=== PATIENT | male | born 1950 | race Caucasian/White ===

== ENCOUNTER → 2018-04-22 | Outpatient (CLI) | payer BC, OTHER, MEDICARE ==
--- NOTE | 2018-04-22 08:51 | US ---
EXAMINATION TYPE: US kidneys/renal and bladder DATE OF EXAM: 04/22/2018 COMPARISON: NONE CLINICAL HISTORY: R82.8 Abnormal urine cytology / Frequent urination. EXAM MEASUREMENTS: Right Kidney: 11.5 x 5.5 x 4.7 cm Left Kidney: 11.5 x 5.7 x 5.4 cm Post Void Residual Volume: 96.2 mL Right Kidney: No hydronephrosis or masses seen Left Kidney: No hydronephrosis or masses seen Bladder: wnl. Prostate appears prominent Bilateral Jets seen: Yes Normal Post Void Residual: No There is no evidence for hydronephrosis at this point in time. No nephrolithiasis is seen. No luis s are identified. The urinary bladder is anechoic. Bilateral ureteral jets are seen. IMPRESSION: Prominence of the prostate gland. Otherwise unremarkable study.
== END | disposition home or self-care (01) ==
LOC: RADUSWWP 08:08
PROVIDERS: ATTEND Urology
DX: N42.89 Other specified disorders of prostate (principal)
CPT/HCPCS: 76770

== ENCOUNTER → 2019-02-18 | Outpatient (CLI) | payer BC, MEDICARE ==
[2019-02-18 14:58] LABS: Basophils % (A) 1 %; Eosinophils # (A) 0.2 k/uL (0-0.7); Eosinophils % (A) 3 %; HCT 43.4 % (39.0-53.0); HGB 14.6 gm/dL (13.0-17.5); Lymphocytes # (A) 1.7 k/uL (1.0-4.8); Lymphocytes % (A) 29 %; MCH 28.4 pg (25.0-35.0); MCHC 33.7 g/dL (31.0-37.0); MCV 84.2 fL (80.0-100.0); Mean Platelet Volume 6.9; Monocytes # (A) 0.4 k/uL (0-1.0); Monocytes % (A) 6 %; Neutrophils # (A) 3.7 k/uL (1.3-7.7); Neutrophils % (A) 61 %; Platelet Count 259 k/uL (150-450); RBC 5.16 m/uL (4.30-5.90); RDW 14.3 % (11.5-15.5)
[2019-02-18 23:43] LABS: Albumin 4.3 g/dL (3.80-4.90); Albumin/Globulin Ratio 2.39 (1.60-3.17); Anion Gap 9.1 mmol/L (4.00-12.00); Calcium 9.3 mg/dL (8.7-10.3); Carbon Dioxide 26.9 mmol/L (21.6-31.8); Globulin 1.8 g/dL (1.6-3.3); Total Bilirubin 0.9 mg/dL (0.2-1.2); Total Protein 6.1 g/dL (6.2-8.2)
[2019-02-18 23:50] LABS: T4, Free (Free Thyroxine) 1.1 ng/dL (0.80-1.80)
== END ==
LOC: LABWHC1 14:19
PROVIDERS: ATTEND Psychiatry & Neurology Neurology
DX: T42.6X5A Adverse effect of other antiepileptic and sedative-hypnotic drugs, initial encounter (principal); R56.9 Unspecified convulsions
CPT/HCPCS: 36415; 80053; 84439; 84443; 85025

== ENCOUNTER 2020-11-02 10:38 | Day surgery (SDC) | payer BC, MEDICARE ==
[2020-10-31 16:14] VITALS: BMI 25.8
[~2020-11-02 10:38] MED LIST: LACTATED RINGERS 1,000 ML IV SCH; LIDOCAINE 1% (10MG/ML) FOR IV START INTRADERMA PRN
[2020-11-02 11:13] VITALS: TEMP 97
[2020-11-02] MEDS ORDERED: LIDOCAINE 1% INJ 10MG/ML (20 ML MDV) ONE (11:57)
[2020-11-02] MEDS ORDERED: PROPOFOL 10 MG/ML 20 ML VIAL IV ONE (11:57)
--- NOTE | 2020-11-02 12:17 | P.PCN ---
Date of Procedure: 11/02/20 Procedure(s) Performed: BRIEF HISTORY: Patient is a 70-year-old pleasant white male scheduled for an elective colonoscopy as a part of evaluation of change in bowel habits. Last colonoscopy was 10 years ago. PROCEDURE PERFORMED: Colonoscopy with snare polypectomy. PREOPERATIVE DIAGNOSIS: Change in bowel habits. IV sedation per Anesthesia. PROCEDURE: After informed consent was obtained, the patient, was brought into the endoscopy unit. IV sedation was administered by Anesthesia under continuous monitoring. Digital rectal examination was normal. Initially the Olympus CF-160 flexible video colonoscope was then inserted in the rectum, gradually advanced into the cecum without any difficulty. Careful examination was performed as the scope was gradually being withdrawn. Ileocecal valve and the appendiceal orifice were visualized and appeared normal. Prep was excellent. The cecum there was a 1.5 cm broad-based polyp removed by snare polypectomy. Mucosa of the cecum, ascending colon, transverse colon, descending colon, sigmoid colon, and rectum appeared normal. Moderate left-sided diverticulosis seen. Retroflexion was performed in the rectum and no lesions were seen. The patient tolerated the procedure well. IMPRESSION: 1.5 cm cecal polyp status post snare polypectomy Moderate sigmoid diverticulosis. RECOMMENDATIONS: Findings of this examination were discussed with the patient as well as his family. He was advised to follow with the biopsy results. If the biopsy shows an adenoma he can have a repeat colonoscopy in 3 years.
[2020-11-02 12:48] VITALS: BP 156/93; PULSE 60; RESP 14
== END 2020-11-02 12:58 | disposition home or self-care (01) ==
LOC: ORWHC2ENDO 10:38
PROVIDERS: ATTEND Internal Medicine Gastroenterology
DX: D12.0 Benign neoplasm of cecum (principal); K57.30 Diverticulosis of large intestine without perforation or abscess without bleeding; Z79.899 Other long term (current) drug therapy
CPT/HCPCS: 88305; 45385; J2001; J2704

== ENCOUNTER 2022-02-16 15:21 | Emergency (ER) | payer BC, MEDICARE ==
[2022-02-16 15:47] VITALS: RESP 18
--- NOTE | 2022-02-16 17:31 | ED ---
General Adult HPI - General Chief complaint: Recheck/Abnormal Lab/Rx Stated complaint: wants covid test Time Seen by Provider: 02/16/22 16:29 Source: patient, RN notes reviewed Mode of arrival: ambulatory Limitations: no limitations - History of Present Illness Initial comments: 71-year-old male presents to the emergency department for evaluation after having a positive Covid test at home. Patient states he started with a cough on and was just not feeling like himself therefore he took Covid test. States he has continued to feel poorly, specifically fatigue. Patient reports history of short-term memory loss and requested I speak with his who verifies these symptoms and this timeline. Patient denies fever, chills, shortness of breath, abdominal pain, nausea, vomiting, diarrhea, dysuria, or hematuria. - Related Data Home Medications Medication Instructions Recorded Confirmed lamoTRIgine [lamoTRIgine ER] 100 mg PO BID 07/31/16 11/02/20 Multivit-Min/FA/Lycopen/Lutein 1 each PO DAILY 10/31/20 11/02/20 [Centrum Silver Tablet] Vitamin B-12 (Unknown Dose) 1 tab PO DAILY 10/31/20 11/02/20 Allergies Allergy/AdvReac Type Severity Reaction Status Date / Time No Known Allergies Allergy Verified 02/16/22 15:47 Review of Systems ROS Statement: Those systems with pertinent positive or pertinent negative responses have been documented in the HPI. ROS Other: All systems not noted in ROS Statement are negative. Past Medical History Past Medical History: Memory Impairment, Seizure Disorder Additional Past Medical History / Comment(s): Has shunt, hx hematomas, hydrocephalic; last seizure 1993; short term memory impaired. Recent wgt loss, some diarrhea. History of Any Multi-Drug Resistant Organisms: None Reported Past Surgical History: Ventriculoperitoneal Shunt Additional Past Surgical History / Comment(s): MULTIPLE BRAIN SURGERIES - SHUNT. Colonoscopy Past Anesthesia/Blood Transfusion Reactions: No Reported Reaction Past Psychological History: No Psychological Hx Reported Smoking Status: Never smoker Past Alcohol Use History: None Reported Past Drug Use History: None Reported - Past Family History Father Family Medical History: Cancer Additional Family Medical History / Comment(s): SKIN CANCER General Exam Limitations: no limitations (Well-developed, well-nourished male in no acute distress. Initial temperature 98.2, pulse 84, respirations 18, blood pressure 168/83, pulse ox 99% on room air.) General appearance: alert, in no apparent distress ENT exam: Present: normal exam, normal oropharynx, mucous membranes moist Respiratory exam: Present: normal lung sounds bilaterally. Absent: respiratory distress, wheezes, rales, rhonchi, stridor, chest wall tenderness Cardiovascular Exam: Present: regular rate, normal rhythm, normal heart sounds. Absent: systolic murmur, diastolic murmur, rubs, gallop, clicks GI/Abdominal exam: Present: soft, normal bowel sounds. Absent: distended, tenderness, guarding, rebound, rigid Neurological exam: Present: alert, oriented X3, CN II-XII intact, other (history of short-term memory loss, answers questions appropriately) Psychiatric exam: Present: normal affect, normal mood Skin exam: Present: warm, dry, intact, normal color Course Vital Signs 02/16/22 02/16/22 02/16/22 15:42 17:37 17:47 Temperature 98.2 F 98.4 F Pulse Rate 84 80 Respiratory 18 18 18 Rate Blood Pressure 168/83 154/80 O2 Sat by Pulse 99 99 Oximetry 02/16/22 18:56 Temperature Pulse Rate 86 Respiratory 18 Rate Blood Pressure 154/90 O2 Sat by Pulse 98 Oximetry - Reevaluation(s) Reevaluation #1: 02/16/22 17:00 Patient was assessed in [facility]. Discussed symptoms, onset, and timeline. Talked with patient about the monoclonal antibody infusion; he is agreeable. Also spoke with patient's spouse at that time and she corroborates this. 02/16/22 18:35 Patient tolerated monoclonal antibody infusion well. No adverse reaction. Provid ed with a meal and will be discharged one hour after injection. 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 Upon exam, patient is well-appearing and in no acute distress. He is able to speak in full sentences and is not experiencing any difficulty breathing. Patient reports symptoms began on with a cough and have progressed to fatigue. Physical exam findings are unremarkable. He is afebrile with a room air sat 98% or greater. Discussed mAB infusion with patient as well as his spouse via telephone. He qualifies based on positive test verified today, symptom onset within the past 7 days, and age greater than 65 years. He tolerated the infusion without adverse reaction. He will be discharged home with strict return parameters. Reviewed isolation guideline. Instructed to follow up with PCP for recheck via telephone or videovisit on Friday. Patient verbalizes understanding and agrees with this plan. Attending: Frantz. - Lab Data Lab Results 02/16/22 Range/Units 15:48 Coronavirus (PCR) Detected A (Not Detectd) Disposition Clinical Impression: COVID-19 Disposition: HOME SELF-CARE Condition: Stable Instructions (If sedation given, give patient instructions): Coronavirus Disease 2019 (COVID-19) Additional Instructions: Alternate Tylenol and Motrin if needed for fever or body aches. Increase hydration and consider electrolyte replacement solution such as Gatorade or Powerade. Follow-up with your PCP via telephone or video visit for a recheck on Friday. Call and let him know that you were seen in the ED and given the monoclonal antibody infusion. You were provided with a work note. You may return to work on February 20 if you remain fever-free. Please wear a mask while at work upon your return. Return to the emergency department with any new, worsening, or concerning symptoms. Is patient prescribed a controlled substance at d/c from ED?: No Referrals: Rito Dutton MD [Primary Care Provider] - 1-2 days Time of Disposition: 19:00
[2022-02-16] MEDS ORDERED: BEBTELOVIMAB (EUA) 175 MG/2 ML VIAL IV ONE (18:00)
[2022-02-16 18:16] VITALS: TEMP 98.4
[2022-02-16 19:06] VITALS: BP 154/90; PULSE 86
== END 2022-02-16 18:56 | disposition home or self-care (01) ==
LOC: EC 15:21
DX: U07.1 COVID-19 (principal); G40.909 Epilepsy, unspecified, not intractable, without status epilepticus; Z79.899 Other long term (current) drug therapy
CPT/HCPCS: 87635; 99283; Q0222

== ENCOUNTER → 2024-03-09 | Outpatient (CLI) | payer BC, MEDICARE ==
--- NOTE | 2024-03-09 13:32 | CT ---
EXAMINATION TYPE: CT brain wo con CT DLP: 1219 mGycm, Automated exposure control for dose reduction was used. DATE OF EXAM: 03/09/2024 1:17 PM COMPARISON: . CLINICAL INDICATION:Male, 73 years old with history of G91.0 hydrocephalus, failed shunt, f/u TECHNIQUE: Brain: Axial CT images of the brain were obtained with coronal and sagittal reformats created and rev iewed. Contrast used: None. Oral contrast used: None. FINDINGS: Brain: Extra-axial spaces: No abnormal extra-axial fluid collections. Ventricular system: Marked dilatation. A shunt tube approaches from the right parietal bone. It trave rses the posterior horn of the right ventricle and has its tip near the midline at the level of the a nterior horns. Cerebral parenchyma: No acute intraparenchymal hemorrhage or mass effect. The devine-white junction is well differentiated. Cerebellum: Unremarkable. Mass effect: No evidence of midline shift. Intracranial vasculature: unremarkable Soft tissues: Normal. Calvarium/osseous structures: No depressed skull fracture. Paranasal sinuses and mastoid air cells: Mild scattered paranasal sinus disease. Visualized orbits: Orbital contents are intact. IMPRESSION: Hydrocephalus with shunt tube in place.
== END | disposition home or self-care (01) ==
LOC: RADCTMAIN 12:23
PROVIDERS: ATTEND Psychiatry & Neurology Neurology
DX: G91.9 Hydrocephalus, unspecified (principal); G91.0 Communicating hydrocephalus
CPT/HCPCS: 70450

== ENCOUNTER 2025-02-17 18:48 | Emergency (ER) | payer BC, MEDICARE ==
--- NOTE | 2025-02-17 19:58 | ED ---
General Adult HPI - General Chief complaint: Fall Stated complaint: Fall Time Seen by Provider: 02/17/25 19:01 Source: patient, RN notes reviewed Mode of arrival: ambulatory Limitations: no limitations - History of Present Illness Initial comments: This is a 74-year-old male with history including hydrocephaly, memory impairment and seizure disorder presenting with for increased falls at home since yesterday morning. states patient has been falling more often without precipitating cause, trip or significant injury thus far. states patient's coordination is worse than usual and suspecting right leg weakness as possible cause. Patient denies weakness in extremities, sensation changes, dizziness, verbalization issues. Patient denies regular use of cane/walker. Denies fever, chills, neck stiffness, dizziness, chest pain, dyspnea, abdominal pain, N/V/D. Onset/Timin -: days(s) Worsens with: movement Associated Symptoms: weakness Treatments Prior to Arrival: none - Related Data Home Medications Medication Instructions Recorded Confirmed lamoTRIgine [lamoTRIgine ER] 100 mg PO BID 07/31/16 11/02/20 Multivit-Min/FA/Lycopen/Lutein 1 each PO DAILY 10/31/20 11/02/20 [Centrum Silver Tablet] Vitamin B-12 (Unknown Dose) 1 tab PO DAILY 10/31/20 11/02/20 Allergies Allergy/AdvReac Type Severity Reaction Status Date / Time No Known Allergies Allergy Verified 02/17/25 19:03 Review of Systems ROS Statement: Those systems with pertinent positive or pertinent negative responses have been documented in the HPI. ROS Other: All systems not noted in ROS Statement are negative. Past Medical History Past Medical History: Memory Impairment, Seizure Disorder Additional Past Medical History / Comment(s): Has shunt, hx hematomas, hydrocephalic; last seizure 1993; short term memory impaired. Recent wgt loss, some diarrhea. History of Any Multi-Drug Resistant Organisms: None Reported Past Surgical History: Ventriculoperitoneal Shunt Additional Past Surgical History / Comment(s): MULTIPLE BRAIN SURGERIES - SHUNT. Colonoscopy Past Anesthesia/Blood Transfusion Reactions: No Reported Reaction Past Psychological History: No Psychological Hx Reported Smoking Status: Never smoker Past Alcohol Use History: None Reported Past Drug Use History: None Reported - Past Family History Father Family Medical History: Cancer Additional Family Medical History / Comment(s): SKIN CANCER General Exam Limitations: no limitations General appearance: alert, in no apparent distress Head exam: Present: atraumatic, normocephalic, normal inspection Eye exam: Present: normal appearance, PERRL. Absent: EOMI (Patient has restricted EOMI. states that this is normal.), scleral icterus, conjunctival injection, nystagmus, periorbital swelling Pupils: Present: normal accommodation ENT exam: Present: normal exam, normal oropharynx, mucous membranes moist, TM's normal bilaterally Neck exam: Present: normal inspection. Absent: tenderness, meningismus, lymphadenopathy Respiratory exam: Present: normal lung sounds bilaterally. Absent: respiratory distress, wheezes, rales, rhonchi, stridor, accessory muscle use, decreased breath sounds, prolonged expiratory Cardiovascular Exam: Present: regular rate, normal rhythm, normal heart sounds. Absent: systolic murmur, diastolic murmur, rubs, gallop, clicks GI/Abdominal exam: Present: soft, distended, normal bowel sounds. Absent: tenderness, guarding, rebound, rigid, mass, pulsatile mass, hernia Extremities exam: Present: normal inspection, full ROM, normal capillary refill, other (Positive BLE strength 5/5 including hip flexor, knee flexion/extension and foot dorsi/plantarflexion. DTR reflexes +2 bilaterally. Distal neurovascular and motor function intact. Posterior tibialis pulse +2.). Absent: tenderness, pedal edema, joint swelling, calf tenderness Back exam: Present: normal inspection Neurological exam: Present: alert, oriented X3, CN II-XII intact (Patient has restricted range of motion with EOM but is able to visualize finger in peripheral anderson. Remaining cranial nerve test is normal.), reflexes normal, other (Arthur stroke negative. 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 MARYLIN and heel to lamas test normal) Psychiatric exam: Present: normal affect, normal mood Skin exam: Present: warm, dry, intact, normal color. Absent: rash Course Vital Signs 02/17/25 02/17/25 18:59 21:11 Temperature 98.5 F Pulse Rate 90 75 Respiratory 20 18 Rate Blood Pressure 154/97 160/93 O2 Sat by Pulse 95 97 Oximetry Medical Decision Making - Medical Decision Making Was pt. sent in by a medical professional or institution (, PA, DIAL MARKER, urgent care, hospital, or [facility]...) When possible be specific @ -No Did you speak to anyone other than the patient for history (EMS, parent, family, police, friend...)? What history was obtained from this source @ - provided majority of HPI Did you review nursing and triage notes (agree or disagree)? Why? @ -I reviewed and agree with nursing and triage notes Were old charts reviewed (outside hosp., previous admission, EMS record, old EKG, old radiological studies, urgent care reports/EKG's, [facility] records)? Report findings @ -No old charts were reviewed Differential Diagnosis (chest pain, altered mental status, abdominal pain women, abdominal pain men, vaginal bleeding, weakness, fever, dyspnea, syncope, headache, dizziness, GI bleed, back pain, seizure, CVA, palpatations, mental health, musculoskeletal)? @ -Differential Weakness: Hypoglycemia, shock, sepsis, hyponatremia, anemia, infection, MA, ETOH, adverse medicine reaction, overdose, stroke, this is not meant to be an all-inclusive list. EKG interpreted by me (3pts min.). @ -Sinus rhythm without ST deviation or T wave inversion. Ventricular rate 60 bpm, LAURI 161 ms, QRS 102 ms, QTc 398 ms. X-rays interpreted by me (1pt min.). @ -CXR shows no acute cardiopulmonary process. 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 CT interpreted by me (1pt min.). @ - Brain CT shows no acute intracranial hemorrhage with recurring marked hydrocephalus and in place CASINO BEVERAGE SERVER shunt and previously noted remote lacunar injuries of bilateral frontal lobes. 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 1.2 cm benign meningioma in left frontal lobe noted. Otherwise no evidence of dissection, aneurysm or high-grade stenosis and carotid, vertebral or intracranial vessels. U/S interpreted by me (1pt. min.). @ -None done What testing was considered but not performed or refused? (CT, X-rays, U/S, labs)? Why? @ -None What meds were considered but not given or refused? Why? @ -None Did you discuss the management of the patient with other professionals (professionals i.e. , PA, DIAL MARKER, lab, RT, psych nurse, director of social media marketing, biofuels production manager, teacher, civilian jail officer, director of casework department)? Give summary @ -Spoke to Dr. Lemus from [facility] emergency department who advised, with no concerning/abnormal findings, outpatient follow-up with neurology and physical therapy is recomm ended. Patient and agree to follow-up outpatient for ongoing workup. Was smoking cessation discussed for >3mins.? @ -No Was critical care preformed (if so, how long)? @ -No Were there social determinants of health that impacted care today? How? (Homelessness, low income, unemployed, alcoholism, drug addiction, transportation, low edu. Level, literacy, decrease access to med. care, fpc, rehab)? @ -No Was there de-escalation of care discussed even if they declined (Discuss DNR or withdrawal of care, Hospice)? DNR status @ -No What co-morbidities impacted this encounter? (DM, HTN, Smoking, COPD, CAD, Cancer, CVA, ARF, Chemo, Hep., AIDS, mental health diagnosis, sleep apnea, morbid obesity)? @ -Hydrocephaly Was patient admitted / discharged? Hospital course, mention meds given and route , prescriptions, significant lab abnormalities, going to OR and other pertinent info. @ -Lab work is largely unremarkable with negative troponin and UA. Physical exam shows no indication of acute CVA/TIA with normal extremity strength and retained sensation in bilateral upper and lower extremities. CXR shows no acute cardiopulmonary process. 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 Brain CT shows no acute intracranial hemorrhage with recurring marked hydrocephalus and in place CASINO BEVERAGE SERVER shunt and previously noted remote lacunar injuries of bilateral frontal lobes. 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 1.2 cm benign meningioma in left frontal lobe noted. Otherwise no evidence of dissection, aneurysm or high-grade stenosis and carotid, vertebral or intracranial vessels. Spoke to Dr. Lemus from [facility] Emergency Department who advised, with no concerning/abnormal findings, outpatient follow- up with neurology and physical therapy is recommended. Patient and agree to this plan. Discussed patient with Dr. Vance. Undiagnosed new problem with uncertain prognosis? @ -No Drug Therapy requiring intensive monitoring for toxicity (Heparin, Nitro, Insulin, Cardizem)? @ -No Were any procedures done? @ -No Diagnosis/symptom? @ -Frequent falls Acute, or Chronic, or Acute on Chronic? @ -Acute Uncomplicated (without systemic symptoms) or Complicated (systemic symptoms)? @ -Complicated Side effects of treatment? @ -No Exacerbation, Progression, or Severe Exacerbation? @ -No Poses a threat to life or bodily function? How? (Chest pain, USA, MA, pneumonia, PE, COPD, DKA, ARF, appy, cholecystitis, CVA, Diverticulitis, Homicidal, Suicidal, threat to staff... and all critical care pts) @ -No - Lab Data Result diagrams: 02/17/25 20:29 02/17/25 20:29 Lab Results 02/17/25 02/17/25 02/17/25 Range/Units 20:29 20:29 20:29 WBC 7.3 (3.8-10.6) k/uL RBC 4.99 (4.30-5.90) m/uL Hgb 14.2 (13.0-17.5) gm/dL Hct 43.0 (39.0-53.0) % MCV 86.0 (80.0-100.0) fL MCH 28.4 (25.0-35.0) pg MCHC 33.0 (31.0-37.0) g/dL RDW 13.7 (11.5-15.5) % Plt Count 262 (150-450) k/uL MPV 7.3 Neutrophils % 65 % Lymphocytes % 24 % Monocytes % 5 % Eosinophils % 4 % Basophils % 1 % Neutrophils # 4.8 (1.3-7.7) k/uL Lymphocytes # 1.7 (1.0-4.8) k/uL Monocytes # 0.4 (0-1.0) k/uL Eosinophils # 0.3 (0-0.7) k/uL Basophils # 0.1 (0-0.2) k/uL PT 10.7 (10.0-12.5) sec INR 1.0 (<1.2) APTT 22.8 (22.0-30.0) sec Sodium (137-145) mmol/L Potassium (3.5-5.1) mmol/L Chloride (98-107) mmol/L Carbon Dioxide (22-30) mmol/L Anion Gap mmol/L BUN (9-20) mg/dL Creatinine (0.66-1.25) mg/dL Est GFR (CKD-EPI)AfAm (>60 ml/min/1.73 sqM) Est GFR (CKD-EPI)NonAf (>60 ml/min/1.73 sqM) Glucose (74-99) mg/dL Calcium (8.4-10.2) mg/dL Magnesium (1.6-2.3) mg/dL Total Bilirubin (0.2-1.3) mg/dL AST (17-59) U/L ALT (4-49) U/L Alkaline Phosphatase (38-126) U/L Troponin I (0.000-0.034) ng/mL Total Protein (6.3-8.2) g/dL Albumin (3.5-5.0) g/dL Urine Color Light Yellow Urine Appearance Clear (Clear) Urine pH 5.5 (5.0-8.0) Ur Specific Antonito 1.020 (1.001-1.035) Urine Protein Negative (Negative) Urine Glucose (UA) Negative (Negative) Urine Ketones Negative (Negative) Urine Blood Negative (Negative) Urine Nitrite Negative (Negative) Urine Bilirubin Negative (Negative) Urine Urobilinogen <2.0 (<2.0) mg/dL Ur Leukocyte Esterase Negative (Negative) 02/17/25 02/17/25 Range/Units 20:29 20:29 WBC (3.8-10.6) k/uL RBC (4.30-5.90) m/uL Hgb (13.0-17.5) gm/dL Hct (39.0-53.0) % MCV (80.0-100.0) fL MCH (25.0-35.0) pg MCHC (31.0-37.0) g/dL RDW (11.5-15.5) % Plt Count (150-450) k/uL MPV Neutrophils % % Lymphocytes % % Monocytes % % Eosinophils % % Basophils % % Neutrophils # (1.3-7.7) k/uL Lymphocytes # (1.0-4.8) k/uL Monocytes # (0-1.0) k/uL Eosinophils # (0-0.7) k/uL Basophils # (0-0.2) k/uL PT (10.0-12.5) sec INR (<1.2) APTT (22.0-30.0) sec Sodium 137 (137-145) mmol/L Potassium 4.4 (3.5-5.1) mmol/L Chloride 103 (98-107) mmol/L Carbon Dioxide 26 (22-30) mmol/L Anion Gap 8 mmol/L BUN 19 (9-20) mg/dL Creatinine 0.93 (0.66-1.25) mg/dL Est GFR (CKD-EPI)AfAm >90 (>60 ml/min/1.73 sqM) Est GFR (CKD-EPI)NonAf 80 (>60 ml/min/1.73 sqM) Glucose 106 H (74-99) mg/dL Calcium 9.4 (8.4-10.2) mg/dL Magnesium 2.0 (1.6-2.3) mg/dL Total Bilirubin 0.8 (0.2-1.3) mg/dL AST 24 (17-59) U/L ALT 18 (4-49) U/L Alkaline Phosphatase 64 (38-126) U/L Troponin I <0.012 (0.000-0.034) ng/mL Total Protein 6.6 (6.3-8.2) g/dL Albumin 4.1 (3.5-5.0) g/dL Urine Color Urine Appearance (Clear) Urine pH (5.0-8.0) Ur Specific Antonito (1.001-1.035) Urine Protein (Negative) Urine Glucose (UA) (Negative) Urine Ketones (Negative) Urine Blood (Negative) Urine Nitrite (Negative) Urine Bilirubin (Negative) Urine Urobilinogen (<2.0) mg/dL Ur Leukocyte Esterase (Negative) Disposition Clinical Impression: Fall Disposition: HOME SELF-CARE Condition: Good Instructions (If sedation given, give patient instructions): Fall Prevention for Older Adults (ED) Additional Instructions: Follow-up with neurology and physical therapy for ongoing management of increased frequency of falls Is patient prescribed a controlled substance at d/c from ED?: No Referrals: Rito Dutton MD [Primary Care Provider] - 1-2 days Sandhya Vences MD [STAFF PHYSICIAN] - 1-2 days Rito Palma MD [Medical Doctor] - 1-2 days Time of Disposition: 22:47
[2025-02-17 20:41] LABS: Appearance,Urine Clear (Clear); Basophils # (A) 0.1 k/uL (0-0.2); Basophils % (A) 1 %; Bilirubin,Urine Negative (Negative); Blood,Urine Negative (Negative); Color,Urine Light Yellow; Eosinophils # (A) 0.3 k/uL (0-0.7); Eosinophils % (A) 4 %; Glucose,Urine (UA) Negative (Negative); HGB 14.2 gm/dL (13.0-17.5); Ketones,Urine Negative (Negative); Leukocyte Esterase,Urine Negative (Negative); Lymphocytes # (A) 1.7 k/uL (1.0-4.8); Lymphocytes % (A) 24 %; MCH 28.4 pg (25.0-35.0); Mean Platelet Volume 7.3; Monocytes # (A) 0.4 k/uL (0-1.0); Monocytes % (A) 5 %; Neutrophils # (A) 4.8 k/uL (1.3-7.7); Neutrophils % (A) 65 %; Nitrite,Urine Negative (Negative); PH, Urine 5.5 (5.0-8.0); Platelet Count 262 k/uL (150-450); Protein,Urine Negative (Negative); RBC 4.99 m/uL (4.30-5.90); RDW 13.7 % (11.5-15.5); Urobilinogen,Urine <2.0 mg/dL (<2.0); WBC 7.3 k/uL (3.8-10.6)
[2025-02-17 20:50] LABS: Partial Thromboplastin Time 22.8 sec (22.0-30.0); Prothrombin Time 10.7 sec (10.0-12.5)
--- NOTE | 2025-02-17 20:54 | XR ---
EXAMINATION TYPE: XR chest 2V DATE OF EXAM: 02/17/2025 8:45 PM COMPARISON: None TECHNIQUE: XR chest 2V Frontal and lateral views of the chest. CLINICAL INDICATION:Male, 74 years old with history of Increased falls, history of hydrocephaly; FINDINGS: Lungs/Pleura: There is no evidence of pleural effusion, focal consolidation, or pneumothorax. Pulmonary vascularity: Unremarkable. Heart/mediastinum: Cardiomediastinal silhouette is unremarkable. Musculoskeletal: No acute osseous pathology. Other: Right chest MASTER CARPENTER shunt catheter identified. IMPRESSION: No acute cardiopulmonary disease/process. [facility] Prema Gilmore, , 02/17/2025 8:51 PM
--- NOTE | 2025-02-17 20:57 | XR ---
EXAMINATION TYPE: XR KUB DATE OF EXAM: 02/17/2025 COMPARISON: NONE HISTORY: Increased falls, history of hydrocephaly TECHNIQUE: Single supine KUB image of the abdomen is obtained FINDINGS: Small bowel demonstrates no evidence for dilatation or air fluid levels. Gas and fecal material is seen in non-distended colon. No convincing evidence for pneumoperitoneum. No unusual calcifications. NIP WRAPPER shunt catheter identified within the right lower abdomen. Tip overlies the right hemisacrum. There is some discontinuity of the shunt catheter within the right lower quadr ant. The lung bases are clear. The osseous structures are intact. IMPRESSION: 1. Overall nonobstructive bowel gas pattern. 2. NIP WRAPPER shunt catheter within the right lower abdomen with discontinuity identified. This could repres ent fractured shunt catheter versus nonopaque catheter portion. Correlate with clinical history. [facility], , 02/17/2025 8:54 PM
[2025-02-17 21:12] VITALS: RESP 18
[2025-02-17 21:14] LABS: ALT 18 U/L (4-49); AST 24 U/L (17-59); African American GFR (CKD) >90 (>60 ml/min/1.73 sqM); Albumin 4.1 g/dL (3.5-5.0); Alkaline Phosphatase 64 U/L (38-126); Anion Gap 8 mmol/L; Blood Urea Nitrogen 19 mg/dL (9-20); Calcium 9.4 mg/dL (8.4-10.2); Carbon Dioxide 26 mmol/L (22-30); Chloride 103 mmol/L (98-107); Glucose 106 mg/dL (74-99); Non-African American GFR(CKD) 80 (>60 ml/min/1.73 sqM); Potassium 4.4 mmol/L (3.5-5.1); Sodium 137 mmol/L (137-145); Total Bilirubin 0.8 mg/dL (0.2-1.3); Total Protein 6.6 g/dL (6.3-8.2)
--- NOTE | 2025-02-17 22:00 | CT ---
EXAMINATION TYPE: CT brain wo con CT DLP: 1779.5 mGycm, Automated exposure control for dose reduction was used. DATE OF EXAM: 02/17/2025 9:46 PM COMPARISON: CT brain 03/09/2024 CLINICAL INDICATION:Male, 74 years old with history of Increased falls, history of hydrocephaly, Incr eased falls, history of hydrocephaly. TECHNIQUE: Brain: Multiple axial CT images of the brain were obtained without IV contrast. . Coronal and sagitta l reformats reviewed. FINDINGS: Brain: Extra-axial spaces: No abnormal extra-axial fluid collections. Ventricular system: Stable position of right parietal approach shunt catheter with distal tip along t he septum pellucidum between both ventricles and midline. Similar marked hydrocephalus. Cerebral parenchyma: No acute intraparenchymal hemorrhage or mass effect. Hypodense regions within t he bilateral frontal lobes from prior injury. The devine-white junction is well differentiated. Cerebellum: Unremarkable. Mass effect: No evidence of midline shift. Intracranial vasculature: Atherosclerotic calcifications of the intracranial vessels. Soft tissues: Normal. Calvarium/osseous structures: No depressed skull fracture. Surgical changes from bilateral frontal cr aniotomy defects. Postsurgical changes from right parietal approach BAG MACHINE OPERATOR HELPER shunt catheter. Paranasal sinuses and mastoid air cells: Clear Visualized orbits: Orbital contents are intact. IMPRESSION: 1. No acute intracranial hemorrhage. 2. Similar marked hydrocephalus with BAG MACHINE OPERATOR HELPER shunt catheter in place. 3. Remote lacunar injuries involving the bilateral frontal lobes again. [facility], , 02/17/2025 9:58 PM
--- NOTE | 2025-02-17 22:20 | CT ---
EXAMINATION TYPE: CT angio head neck CT DLP: 552.5 mGycm, Automated exposure control for dose reduction was used. DATE OF EXAM: 02/17/2025 9:55 PM COMPARISON: CT brain 02/17/2025, 03/09/2024. CLINICAL INDICATION:Male, 74 years old with history of Increased falls, history of hydrocephaly; PHH, Increased falls, history of hydrocephaly. TECHNIQUE: Axially acquired helical CT angiogram of the head and neck was obtained with contrast util izing 75 cc of [id number]-[id number] administered intravenously. Axial images are supplemented with 3D reconstru ctions which were post-processed at an independent workstation. NASCET criteria used. MIP imaging performed on a separate workstation and submitted for review. FINDINGS: CTA HEAD: Please refer to dedicated CT brain of the same day for findings. Left frontal lobe extra-axial enhanc ing 1.2 cm lesion with dural tail consistent with a benign meningioma. No surrounding vasogenic edema . The visualized portions of the internal carotid arteries, middle cerebral arteries, and posterior cer ebral arteries are patent. The right anterior cerebral artery is patent with supplying the A2 segment s of the bilateral anterior cerebral artery. 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 The basilar and vertebral arteries are patent. Minimal calcification within the V4 segment of the lillian ateral vertebral arteries. CTA NECK: Right Carotid System: The common carotid artery and external carotid artery are patent. The carotid bifurcation demonstrate s no evidence of hemodynamically significant stenosis. Mild calcified plaque within the carotid porti on of the internal carotid artery. The remaining portions of the internal carotid artery demonstrate normal size without significant narrowing. Left Carotid System: The common carotid artery and external carotid artery are patent. The carotid bifurcation demonstrate s no evidence of hemodynamically significant stenosis. Mild calcified plaque within the carotid porti on of the internal carotid artery. The remaining portions of the internal carotid artery demonstrate normal size without significant narrowing. Vertebral arteries are patent without evidence hemodynamically significant stenosis. There is a three-vessel aortic arch. The origins of the great vessels are patent. No evidence of hemo dynamically significant stenosis. Right neck and chest ROTOR BALANCER shunt catheter. This takes a right parietal approach. Couple of subcentimeter hypodense right thyroid lobe nodules. Mild multilevel degenerative disc disease. IMPRESSION: 1. No evidence of dissection of the cervical internal carotid arteries or vertebral arteries or any e vidence of significant stenosis at the carotid bifurcations. 2. No evidence of high-grade stenosis or intracranial aneurysm. 3. 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 The right AMANDA supplies both A2 segments. 4. Left frontal 1.1 cm benign meningioma. 5. Please refer to CT brain from earlier today for findings related to hydrocephalus, ROTOR BALANCER shunt cathet er, and prior insults. [facility], , 02/17/2025 10:18 PM
[2025-02-17] MEDS: MAGNESIUM CITRATE 296 ML BOTTLE PO ONE (23:29)
[2025-02-17 23:52] VITALS: BP 165/89; PULSE 82; TEMP 98.7
== END 2025-02-17 23:53 | disposition home or self-care (01) ==
LOC: EC 18:48
DX: Z04.3 Encounter for examination and observation following other accident (principal); D32.0 Benign neoplasm of cerebral meninges; G91.9 Hydrocephalus, unspecified
CPT/HCPCS: 36415; 93005; 80053; 83735; 84484; 85025; 85610; 85730; 81003; 71046; 74018; 70496; 70450; 70498; 99284; Q9967